=== PATIENT | male | born 1935 | race Caucasian/White ===

== ENCOUNTER 2016-08-09 13:59 | Inpatient (IN) | payer OTHER ==
[~2016-08-09] VITALS: Ht 157.5 cm; Wt 78.6 kg
[~2016-08-09 13:59] MED LIST: BG MC; COU1 PO; FLO4 PO; GLU5 PO; IPRATROPIUM BROM3 M2 HHN; METOPROLOL TART25 M1 PO; PHOS PO; SYN25 PO
--- NOTE | 2016-08-09 14:10 | NUR ---
PT TO ED LOBBY WITH FAMILY VIA WHEELCHAIR PENDING BED AVAILABILITY. HE IS A&O 4, BREATHING EVEN AND UNLABORED, WITH NO VISUAL SIGNS OF ACUTE OR RESP DISTRESS NOTED.
--- NOTE | 2016-08-09 16:07 | NUR ---
PT WHEELED TO BED 9 C/O LEFT HIP PAIN S/P FALL TODAY. PT'S STS PT MISSED DIALYSIS TODAY. PLACED PT ON CM, VSS. PT A/O X4, PT'S RESP E/U, PT ABLE TO SPEAK FULL SENTENCES.AWAITING DR SHEPPARD.
--- NOTE | 2016-08-09 17:02 | NUR ---
ED PHYSICIAN AT BEDSIDE FOR PATIENT EVALUATION. MEDICAL SCREENING EXAMINATION COMPLETED BY ED PHYSICIAN.
[2016-08-09 17:17] LABS: BASOPHIL % 0.5 % (0-2); PLATELET COUNT 176 x10^3mcL (130-400)
[2016-08-09 17:18] LABS: RED CELL DISTRIBUTION WIDTH 16.6 % (11.5-14.5)
[2016-08-09 17:27] LABS: ALKALINE PHOSPHATASE 72 U/L (46-116); ALT/SGPT 12 U/L (16-63); AST/SGOT 15 U/L (15-37); BILIRUBIN TOTAL 0.88 mg/dL (0.20-1.00); CALCIUM 8.9 mg/dL (8.5-10.1); CARBON DIOXIDE 30.2 mmol/L (21-32); CHLORIDE SERUM 97 mmol/L (98-107); CHOLESTEROL 143 mg/dL (<200); GLUCOSE SERUM 99 mg/dL (74-106); HDL CHOLESTEROL 44 mg/dL (40-60); SODIUM SERUM 135 mmol/L (136-145); TOTAL PROTEIN, SERUM 7.1 g/dL (6.4-8.2); URIC ACID 6.6 mg/dL (3.5-7.2)
[2016-08-09 17:34] LABS: ALBUMIN 2.7 g/dL (3.4-5.0)
[2016-08-09 17:36] LABS: CREATININE SERUM 9.7 mg/dL (0.7-1.3); POTASSIUM SERUM 5.8 mmol/L (3.5-5.1)
--- NOTE | 2016-08-09 18:06 | NUR ---
ALL TEST RESULTS COMPLETE, PATIENT READY FOR MD RE-EVALUATION.
--- NOTE | 2016-08-09 18:19 | NUR ---
MRSA SPECIMEN TAKEN AND SENT TO THE LAB
--- NOTE | 2016-08-09 18:38 | NUR ---
AWAITING FOR BED AVAILABILITY
--- NOTE | 2016-08-09 18:56 | NUR ---
AWAITING FOR BED AVAILABILITY
--- NOTE | 2016-08-09 19:10 | NUR ---
RECEIVED PT FROM ED VIA [facility], CAME IN DUE TO DIZZINESS, SYNCOPE AND S/P FALL. AAOX4. [place]. ABLE TO FOLLOW COMMANDS. NO SOB NOTED, LUNG SOUNDS DIMINISHED, W/ NON-PRODUCTIVE COUGH. DENIES CHEST PAIN/PRESSURE, 100% PACED. W/LEFT UPPER CHEST PACEMAKER. W/ BLE EDEMA. W/ LEFT ARM AV SHUNT, BRUIT AND THRILL PRESENT. ABDOMEN IS DISTENDED AND SOFT. C/O LEFT HIP PAIN ONLY ON MOVEMENT. SIDE RAILS UPX2. CALL LIGHT ON REACH. ON AIR MATTRESS.
--- NOTE | 2016-08-09 19:35 | NUR ---
ENDORSED TO INCOMING NURSE EASTON FOR CONTINUITY OF CARE
[2016-08-09 19:41] VITALS: BP 139/88
[2016-08-09 19:45] VITALS: Ht 157.5 cm; Wt 78.6 kg
--- NOTE | 2016-08-09 20:16 | NUR ---
PT A/A/O X4, DAUGHTER AT AT BEDSIDE. PT DENIES PAIN THUS FAR. ON AIR MATTRESS. IV INTACT ON THE RAC INFUSING WITH NS AT 10 ML/HR. MADE PT COMFORTABLE. PLACED CALL LIGHT WITH IN REACH. WILL CONTINUE TO MONITOR.
[2016-08-09 20:51] LABS: T3 TOTAL 0.64 ng/mL
[2016-08-09 20:52] LABS: CHOLESTEROL/HDL RATIO 3.4; MAGNESIUM 2.4 mg/dL (1.8-2.4)
[2016-08-09 21:04] LABS: FREE T4 1.38 ng/dL (0.76-1.46); FREE THYROXINE INDEX 2.4 ug/dL (1.4-4.5); T4(THYROXINE) 6.8 ug/dL (4.7-13.3)
[2016-08-09 22:13] VITALS: BP 115/64
--- NOTE | 2016-08-09 22:25 | NUR ---
PT C/O HEADACHE. GAVE PT TYLENOL PO. PT TOLERATED IT WELL. WILL CONTINUE TO MONITOR.
--- NOTE | 2016-08-09 22:36 | NUR ---
PT REFUSED KAYEXALTE, COLACE AND METOPROLOL PO. DR. GALLEGOS NOTIFIED. NO NEW ORDER GIVEN. WILL CONTINUE TO MONITOR.
[2016-08-09 22:53] VITALS: BP 115/64
--- NOTE | 2016-08-10 02:03 | NUR ---
PT C/O OF LEFT HIP PAIN. GAVE PT NORCO PO. PT TOLERATED IT WELL. WILL CONTINUE TO MONITOR.
--- NOTE | 2016-08-10 05:36 | NUR ---
PT RESTING WITH EYES CLOSED. AROUSABLE WITH VERBAL STIMULI. NO C/O PAIN THUS FAR. IV INTACT AND INFUSING ORDERED. MADE PT COMFORTABLE. WILL ENDORSE TO THE AM NURSE ACCORDINGLY.
--- NOTE | 2016-08-10 05:48 | NUR ---
SPOKE WITH DIALYSIS NURSE DOMINGUEZ TO CONFIRM SCHEDULED DIALYSIS FOR TODAY. WILL ENDORSE TO THE AM NURSE ACCORDINGLY.
[2016-08-10 06:10] LABS: BASOPHIL % 0.5 % (0-2); PLATELET COUNT 147 x10^3mcL (130-400)
[2016-08-10 06:11] VITALS: BP 96/53
[2016-08-10 06:22] LABS: CALCIUM 8.6 mg/dL (8.5-10.1); CARBON DIOXIDE 26.1 mmol/L (21-32); CHLORIDE SERUM 97 mmol/L (98-107); GLUCOSE SERUM 83 mg/dL (74-106); MAGNESIUM 2.3 mg/dL (1.8-2.4); PHOSPHOROUS 6.9 mg/dL (2.5-4.9); SODIUM SERUM 133 mmol/L (136-145)
[2016-08-10 06:24] LABS: CREATININE SERUM 9.8 mg/dL (0.7-1.3); POTASSIUM SERUM 6.1 mmol/L (3.5-5.1)
--- NOTE | 2016-08-10 06:34 | NUR ---
LAB CALLED WITH RESULTS OF K 6.1, AND CREAT 9.8. PAGE GATE RESULTS TO DR. GALLEGOS. WILL ENDORSE TO THE AM NURSE ACCORDINGLY.
[2016-08-10 06:43] LABS: RED CELL DISTRIBUTION WIDTH 16.8 % (11.5-14.5)
--- NOTE | 2016-08-10 07:53 | NUR ---
AT 0720 - RECEIVED PATIENT FROM NIGHT NURSE. AWAKE, ALERT AND ORIENTED X 4. MONITOR SHOWING 100 % PACED RHYHTM; RATE 69. IV AT TKO RATE OF 10ML/HR. ECHOCARDIOGRAM IN PROGRESS. FOR HD TODAY. AT 0745 - CALLED PATIENT'S PER PATIENT REQUEST, TO BRING HEARING AID BATTERIES FOR PATIENT.
--- NOTE | 2016-08-10 08:53 | NUR ---
SEEN BY DR HOWARD DURING MORNING ROUNDS. MEDICALT EA DOCTORS, AMMY MADISON AND MYSELF PRIMARY NURSE ALSO PRESENT. DR HOWARD SPOKE WITH PATIENT ABOUT PLAN OF CARE. TO STAY IN HOSPITAL TODAY.
[2016-08-10 10:11] VITALS: BP 110/61
[2016-08-10 14:00] VITALS: BP 107/63
--- NOTE | 2016-08-10 15:50 | NUR ---
P.T. NOTES RECEIVED P.T. EVAL ORDER; HOLD P.T. EVAL TODAY DUE TO DIALYSIS; OHT IN PLACE; CALL [facility], PHONE, TABLE IN REACH; FOLLOW UP TOMORROW. PVE
--- NOTE | 2016-08-10 16:53 | NUR ---
AT 1100 - SEEN BY DR MITCHELL. PATIENT NEEDS TO HAVE HD TODAY. [facility] CALLED AND THEY WILL BE COMING IN AT NOON. AT 1230 - DIALYSIS NURSE AT BEDSIDE, COMMENCING HD. AT 1430 - HD IN PROGRESS. BP LOW BUT STABLE. AT 1600 - SPOKE WITH DAUGHTER AND ABOUT CURRENT PLAN OF CARE. AT 1615 - HD COMPLETED. TOTAL OF 1000 ML REMOVED. BP 110/64. PATIENT MADE COMFORTABLE.
[2016-08-10 17:51] VITALS: BP 108/54
--- NOTE | 2016-08-10 19:11 | NUR ---
PATIENT HAS EATEN DINNER. BETTER APPETITE AFTER DIALYSIS. VSS. DENIES ANY PAIN. RECEIVED CALL FROM DR FLORES. DR UPDATED ON PATIENT CONDITION. NO NEW ORDERS. WILL ENDORSE CARE TO NIGHT NURSE.
--- NOTE | 2016-08-10 20:00 | NUR ---
PT A/A/O X4. DENIES DIZZINESS AND HEADACHE. RHONCHI NOTED SUDHA LUNGS. BREATHING EVEN AND UNLABORED ON 2L NC. DENIES CHEST PAIN AND PRESSURE. BOWEL SOUNDS ACTIVE. NO C/O N/V AND ABD PAIN. AV SHUNT NOTED ON THE FARNAZ WITH POSITIVE BRUIT AND THRILL. PITTING EDEMA NOTED ON BLE. IV INTACT ON THE RAC INFUSING WITH NS AT 10 ML/HR. MADE PT COMFORTABLE. PLACED CALL LIGHT WITH IN REACH. WILL CONTINUE TO MONITOR.
[2016-08-10 21:33] VITALS: BP 89/55
--- NOTE | 2016-08-10 22:34 | NUR ---
PT C/O HIP PAIN. GAVE PT NORCO PO. PT TOLERATED IT WELL. WILL CONTINUE TO MONITOR.
--- NOTE | 2016-08-11 00:13 | NUR ---
PT RESTING WITH EYES CLOSED. NO DISTRESS AND DISCOMFORT NOTED. WILL CONTINUE TO MONITOR.
--- NOTE | 2016-08-11 05:50 | NUR ---
PT QUIET AND RESTING. C/O HEADACHE. GAVE PT TYLENOL PO. PT TOLERATED IT WELL. IV INTACT AND INFUSING ORDERED. WILL ENDORSE TO THE AM NURSE ACCORDINGLY.
[2016-08-11 06:07] VITALS: BP 87/53
[2016-08-11 06:33] LABS: BASOPHIL % 0.6 % (0-2); PLATELET COUNT 138 x10^3mcL (130-400)
[2016-08-11 06:52] LABS: CALCIUM 9.1 mg/dL (8.5-10.1); CARBON DIOXIDE 29.5 mmol/L (21-32); CHLORIDE SERUM 95 mmol/L (98-107); GLUCOSE SERUM 99 mg/dL (74-106); MAGNESIUM 2.1 mg/dL (1.8-2.4); PHOSPHOROUS 7.4 mg/dL (2.5-4.9); POTASSIUM SERUM 5.3 mmol/L (3.5-5.1); SODIUM SERUM 135 mmol/L (136-145)
[2016-08-11 07:26] LABS: CREATININE SERUM 7.2 mg/dL (0.7-1.3)
--- NOTE | 2016-08-11 07:41 | NUR ---
AT 0730 - RECEIVED PATIENT FROM NIGHT NURSE. PATIENT AWAKE, ALERT AND ORIENTED. MONITOR SHOWING 100% PACED RHYTHM; RATE 80'S. IV AT TKO RATE OF 10ML/HR NS. NO C/O PAIN AT THIS TIME. ULTRASOUND AT BEDSIDE.
--- NOTE | 2016-08-11 10:29 | NUR ---
AT 0900 - SEEN BY DR HOWARD DURING MORNING ROUNDS. MEDICAL TEAM DOCTORS, AMMY MADISON AND MYSELF PRIMARY NURSE ALSO PRESENT. DR DELONG SPOKE WITH PATIENT IN INDONESIAN. PLAN TO DC PATIENT HOME TODAY. RECEIVED CALL FROM LAB WITH MRSA POSITIVE NARES. AT 0930 - PHYSICAL THERAPY AT BEDSIDE. PATIENT WAS OUT OF BED WITH WALKER. REPORTS THAT HE ONLY HAS "A LITTLE PAIN". BP LOW 85/42 PATIENT PLACED ON CONTACT ISOLATION. AT 0935 - DR DELGADO PER PHONE. NOTIFIED OF LOW BP AND WELL METOPROLOL AND LASIX BEING HELD AT THIS TIME. DR VASQUEZ NOTIFIED OF MRSA POSITIVE FOR NARES. RECEIVED ORDERS FOR MIDODRIN AND MRSA NARES TREATMENT.
[2016-08-11 10:31] VITALS: BP 85/42
[2016-08-11 14:05] VITALS: BP 100/51
--- NOTE | 2016-08-11 14:16 | NUR ---
AT 1100 - SEEN BY DR SOMMERS (NEPHROLOGY). NEW ORDERS RECEIVED. PAITENT TO GET ALBUMIN ORDERED. CONTINUE WITH MIDODRINE. ALSO RECEIVED ORDER FOR KAYEXALATE FOR K+ OF 5.3. AT 1245 - PATIENT'S VISITING. UPDATED ON CURRENT PLAN OF CARE. SHE REQUESTED TO ALSO SPEAK WITH THE DOCTOR. CALL PLACED FOR DR DELGADO. PATIENT AND MADE AWARE OF MRSA NARES POSITIVE STATUS. MRSA ACKNOWLEDGEMENT FORM SIGNED. AT 1330 - DR DELGADO AT BEDSIDE SPEAKING WITH PATIENT AND . 100 ML ALBUMIN 25% IN PROGRESS.
[2016-08-11 15:15] VITALS: BP 111/66
--- NOTE | 2016-08-11 18:25 | NUR ---
AT 1515 - BP 111/66 AFTER COMPLETION OF ALBUMIN INFUSION. FAMILY AT BEDSIDE. AT 1630 - BLOOD GLUCOSE LEVEL 178. PATIENT REFUSED INSULIN COVERAGE. ALSO REFUSED SCHEDULED DOSE OF GLUCOTROL. PATIENT'S DAUGHTER AND INQUIRED ABOUT ALL MEDS THAT PATIENT IS CURRENTLY TAKING. PATIENT SAYS THAT HE TAKES NO MEDS AT HOME. REQUESTED DR DELGADO TO SPEAK WITH FAMILY REGARDING THIS. AT 1730 - DR DELGADO HAS SPOKEN WITH PATIENT AND FAMILY AT LENGTH. AT 1800 - PATIENT REMAINS AWAKE AND ORIENTED X 4. BP WNL AFTER RECEIVING ALBUMIN AND MIDODRINE. PATIENT HAS BETTER APPETITE TODAY. IV REMAINS AT 10ML/HR. HAS NOT VOIDED THIS SHIFT. CONTACT ISOLATION MAINTAINED. REPORTS RESOLUTION OF HEADACHE. WILL ENDORSE CARE TO NIGHT NURSE.
--- NOTE | 2016-08-11 19:59 | NUR ---
PT IS AAOX4. LUNG SOUNDS HAVE WHEEZING BILATERALLY. PT IS ON 2.5 L NC. NO ACUTE DISTRESS NOTED. BOWEL SOUNDS ARE ACTIVE. DENIES ANY PAIN AT THIS TIME. PT IS ON TELE 1 AND HAS A PACE MAKER ON THE UPPER LEFT SIDE OF HIS CHEST. PACING AT 100%, HR IN THE 70'S RIGHT NOW. PT HAS AN IV IN THE RAC INFUSING 10 ML/HR NS. CALL LIGHT WITHIN REACH. WILL CONTINUE TO MONITOR.
[2016-08-11 20:52] VITALS: BP 86/50
--- NOTE | 2016-08-11 20:53 | NUR ---
BP 86/50 (62) HR 62. PAGE GATED DR. GALLEGOS.
--- NOTE | 2016-08-11 21:19 | NUR ---
HOLDING LASIX PER DR. GALLEGOS'S ORDER DUE TO BP OF 86/50.
--- NOTE | 2016-08-11 21:25 | NUR ---
PT STATES HE FEELS LIKE HE HAS POOP UNDERNEATH HIM. REGINALDO AND I CHECKED. THERE WAS NO BM. PT'S LAST BM WAS 08-09-16. WILL CONTINUE TO MONITOR.
[2016-08-11 22:49] VITALS: BP 86/50
--- NOTE | 2016-08-11 23:36 | NUR ---
PT IS CURRENTLY SLEEPING. NO SIGNS OF DISTRES NOTED. WILL CONTINUE TO MONITOR.
--- NOTE | 2016-08-12 03:49 | NUR ---
PT IS CURRENTLY SLEEPING. NO ACUTE DISTRESS NOTED. CALL LIGHT WITHIN REACH. WILL CONTINUE TO MONITOR.
--- NOTE | 2016-08-12 06:34 | NUR ---
PT IS RESTING IN BED COMFORTABLY. REGINALDO AND I CHANGED THE SHEETS, AND REPOSITIONED THE PT. ALL NEEDS HAVE BEEN MET AND THE CALL LIGHT IS WITHIN REACH. WILL ENDORSE TO MORNING SHIFT.
[2016-08-12 07:05] VITALS: BP 96/52
--- NOTE | 2016-08-12 08:10 | NUR ---
RECEIVED AWAKE, ALERT AND ORIENTED. NO ACUTE DISTRESS NOTED. NO C/O PAIN OR DISCOMFORT AT THIS TIME. PT REPORTED NO BM AFTER KAYAXALATE. NO C/O N/V NOR ABD. DISCOMFORT. IVF INFUSING TO KVO AND SITE CLEAR. CALL LIGHT WITHIN REACH. WILL CONTINUE WITH PLAN OF CARE.
[2016-08-12 10:01] VITALS: BP 100/51
--- NOTE | 2016-08-12 11:37 | NUR ---
PT UP WITH P.T. SITTING ON A CHAIR AT THIS TIME. NO ACUTE RESP. DISTRESS NOTED.
[2016-08-12] MEDS ORDERED: LEV500PM IV ×3 (12:04→22:04)
[2016-08-12] MEDS ORDERED: LAC PO (12:07)
[2016-08-12] MEDS ORDERED: CLE6PM IV ×3 (12:07→22:07)
[2016-08-12 12:19] LABS: BASOPHIL % 0.2 % (0-2); PLATELET COUNT 139 x10^3mcL (130-400)
[2016-08-12 12:27] LABS: CALCIUM 9.2 mg/dL (8.5-10.1); CARBON DIOXIDE 32.4 mmol/L (21-32); CHLORIDE SERUM 93 mmol/L (98-107); GLUCOSE SERUM 107 mg/dL (74-106); PHOSPHOROUS 8.5 mg/dL (2.5-4.9); SODIUM SERUM 136 mmol/L (136-145)
[2016-08-12 12:34] LABS: RED CELL DISTRIBUTION WIDTH 16.7 % (11.5-14.5)
[2016-08-12 12:35] LABS: CREATININE SERUM 8.4 mg/dL (0.7-1.3); POTASSIUM SERUM 5.7 mmol/L (3.5-5.1)
--- NOTE | 2016-08-12 13:30 | NUR ---
DR. DELGADO MADE AWARE OF ELEVETED BUN/CREAT AND K+. PT FOR DIALYSIS. SITTING ON A CHAIR AT THIS TIME. FAMILY AT BEDSIDE.
[2016-08-12 13:48] VITALS: BP 117/48
[2016-08-12 14:34] VITALS: BP 117/48
--- NOTE | 2016-08-12 14:57 | NUR ---
RIGHT SIDED THORACENTESIS DONE. 825ML YELLOW OSCAR COLORED FLUID OUT. HD NURSE AT BEDSIDE, PT TO START DIALYSIS.
--- NOTE | 2016-08-12 15:08 | NUR ---
THORACENTESIS COMPLETED 825ML REMOVED. PT TOLERATED WELL. HEMODIALYSIS IN PROGRESS AT THIS TIME. NO ACUTE DISTRESS. VS WNL.
--- NOTE | 2016-08-12 17:58 | NUR ---
RECEIVED REPORT FROM DIALYSIS NURSE, HAD 2L OUT. LAST BP=95/43. PRIMARY NURSE SUSANNAH MADE AWARE
[2016-08-12 18:17] VITALS: BP 97/48
[2016-08-12 18:33] LABS: APPEARANCE FLUID HAZY; COLOR FLUID YELLOW; RBC FLUID 1963 /cumm; SOURCE FLUID THORACENTESIS; WBC FLUID 188 /cumm
[2016-08-12 18:34] LABS: LYMPHOCYTE FLUID 87 %; MONOCYTE FLUID 7 %
--- NOTE | 2016-08-12 19:14 | NUR ---
PT RESTING AT THIS TIME, NO ACUTE RESP. DISTRESS NOTED. NO CHANGES IN VS. NO C/O PAIN OR DISCOMFORT AT THIS TIME. IVF INFUSING TO KVO AND SITE CLEAR. CALL LIGHT WITHIN REACH. WILL BE ENDORSED TO INCOMING SHIFT.
--- NOTE | 2016-08-12 19:39 | NUR ---
PT CURRENTLY RESTING IN BED, NO ACUTE DISTRESS. A/O X4. TELE #1 SHOWING PACED RHYTHM, DENIES CHEST PAIN. PULSES PALPABLE IN ALL EXTREMITIES, NO EDEMA NOTED. LUNG SOUNDS DIMINISHED BILATERALLY, NO RESPIRATORY DISTRESS NOTED. BOWEL SOUNDS ACTIVE, LAST BM 08/10/16. HD RECEIVED DURING DAY SHIFT, 2L OUT. GENERALIZED WEAKNESS NOTED. SKIN INTACT. DENIES PAIN AT THIS TIME. IV PATENT AND INTACT. BED IN LOWEST POSITION, SIDE RAILS UP X2, SCDS IN PLACE, CALL LIGHT WITHIN REACH. WILL CONTINUE TO MONITOR.
[2016-08-12 22:10] VITALS: BP 100/50
--- NOTE | 2016-08-13 01:17 | NUR ---
PT CURRENTLY RESTING IN BED, NO ACUTE DISTRESS. WILL CONTINUE TO MONITOR.
[2016-08-13 06:01] VITALS: BP 99/41
--- NOTE | 2016-08-13 06:17 | NUR ---
IV IN RAC D/C, NEW IV STARTED IN RFA. NEW IV PATENT AND INTACT. PT TOLERATED PROCEDURE WELL. WILL ENDORSE TO ONCOMING NURSE.
--- NOTE | 2016-08-13 06:20 | NUR ---
PT SLEPT PERIODICALLY THROUGHOUT NIGHT, NO ACUTE DISTRESS. ALL NEEDS MET AND ATTENDED TO. NO SIGNIFICANT CHANGES. IV PATENT AND INTACT. BED IN LOWEST POSITION, SIDE RAILS UP X2, SCDS IN PLACE, CALL LIGHT WITHIN REACH. WILL ENDORSE CARE TO ONCOMING NURSE.
[2016-08-13 07:43] LABS: CARBON DIOXIDE 32.7 mmol/L (21-32); CHLORIDE SERUM 94 mmol/L (98-107); GLUCOSE SERUM 94 mg/dL (74-106); MAGNESIUM 1.8 mg/dL (1.8-2.4); PHOSPHOROUS 6.9 mg/dL (2.5-4.9); POTASSIUM SERUM 4.1 mmol/L (3.5-5.1); SODIUM SERUM 136 mmol/L (136-145)
--- NOTE | 2016-08-13 07:44 | NUR ---
RECEIVED SLEEPING BUT AROUSABLE. NO ACUTE DISTRESS NOTED. VS WNL. NO C/O PAIN OR DISCOMFORT.CALL LIGHT WITHIN REACH. WILL CONTINUE W/PLAN OF CARE.
[2016-08-13 07:52] LABS: CREATININE SERUM 6.2 mg/dL (0.7-1.3)
[2016-08-13 07:58] LABS: BASOPHIL % 0.7 % (0-2); PLATELET COUNT 133 x10^3mcL (130-400); RED CELL DISTRIBUTION WIDTH 16.9 % (11.5-14.5)
--- NOTE | 2016-08-13 09:00 | NUR ---
AM ROUNDS DONE BY DR. HOWARD AND MEDICAL TEAM. PLAN TO CONT. WITH CURRENT TX. PT AGRRED WITH PLAN. CONCERNS ADDRESSED.
[2016-08-13 09:10] VITALS: BP 106/56
--- NOTE | 2016-08-13 13:00 | NUR ---
PT C/O CONSTIPATION X 3 DAYS, LACTULOSE GIVEN IN AM WITH NO RESULT. DR. DENNEY NOTIFIED AND ORDERED DULCOLAX SUPP. MEDS GIVEN. NO RESULTS YET. FAMILY AT BEDSIDE. NO DISTRESS NOTED.
[2016-08-13 13:18] VITALS: BP 106/56
[2016-08-13 13:20] VITALS: BP 97/79
[2016-08-13 17:31] VITALS: BP 113/52
--- NOTE | 2016-08-13 18:59 | NUR ---
PT REMAINS IN NO ACUTE DISTRESS. AWAKE AND ALERT. HAD SOFT LARGE BM X2 TODAY AFTER DULCOLAX. PERICARE DONE. NO C/O PAIN OR DISCOMFORT AT THIS TIME IVF TO KVO AND SITE CLEAR. CALL LIGHT WITHIN REACH. WILL BE ENDORSED TO INCOMING SHIFT.
--- NOTE | 2016-08-13 19:04 | NUR ---
PHYSICAL THERAPY DAILY NOTES CO-SIGN All documentation done by the Distribution Lead for 08/12/16 has been reviewed. I agree with the documentation. Reviewed/Co-Signed by: Zonia Owens DPT Documentation Done by: Osmany Ricci PTA Patient fairly cassia tx, slowly progressing towards goals. Patient cassia limite gait, transfers and up in chair x 60', assisted BTB. Cont with PT POC as cassia/safe.
--- NOTE | 2016-08-13 20:03 | NUR ---
RECEIVED PT FROM AM NURSE IN NO ACUTE DISTRESS, LAYING IN BED COMFORTABLY, A/OX4, TELE #1 100% PACED, DENIES ANY CHEST PAIN OR DISCOMFORT, PULSES PALPABLE AND EVEN, TRACE EDEMA TO BLE, LUNGS DIMINISHED TO BLL, ON 2L NC, DENIES SOB, BREATHING EVEN AND UNLABORED, ABD DISTENDED, BS HYPOACTIVE, RECEIVING DIALYSIS TONIGHT, AV SHUNT TO FARNAZ, BRUIT/THRILL PRESENT, GENERALIZED WEAKNESS, SKIN WARM DRY AND INTACT, DENIES ANY PAIN AT THIS TIME, IV INTACT AND PATENT, BED IN LOWEST POSITION , CALL LIGHT INSTRUCTIONS REINFORCED, WILL CONT TO MONITOR.
[2016-08-13 20:47] VITALS: BP 97/64
--- NOTE | 2016-08-13 21:33 | NUR ---
PT RECEIVING DIALYSIS AT THIS TIME, NO ACUTE DISTRESS, WILL CONT TO MONITOR.
--- NOTE | 2016-08-14 00:32 | NUR ---
DIALYSIS FINISHED AT THIS TIME, 2L OUT, NO ACUTE DISTRESS, WILL CONT TO MONITOR.
--- NOTE | 2016-08-14 05:14 | NUR ---
SLEPT PERIODICALLY, REMAINS IN STABLE CONDITION, ALL NEEDS MET AND ATTENDED TO, IV INTACT AND PATENT, CONTACT PRECAUTION ENFORCED, WILL CONT TO MONITOR AND ENDORSE ALL CARE TO ONCOMING NURSE.
[2016-08-14 05:41] VITALS: BP 103/51
[2016-08-14 07:02] LABS: BASOPHIL % 0.2 % (0-2)
[2016-08-14 07:15] LABS: CALCIUM 8.7 mg/dL (8.5-10.1); CARBON DIOXIDE 32.2 mmol/L (21-32); CHLORIDE SERUM 97 mmol/L (98-107); GLUCOSE SERUM 122 mg/dL (74-106); MAGNESIUM 1.7 mg/dL (1.8-2.4); PHOSPHOROUS 4.8 mg/dL (2.5-4.9); POTASSIUM SERUM 4.1 mmol/L (3.5-5.1); SODIUM SERUM 135 mmol/L (136-145)
--- NOTE | 2016-08-14 07:19 | NUR ---
RECEIVED REPORT FROM ARNULFO KILGORE.
--- NOTE | 2016-08-14 07:21 | NUR ---
PT IS SLEEPING COMFORTABLY IN BED, NO DISTRESS NOTED AT THIS TIME.
[2016-08-14 07:36] LABS: PLATELET COUNT 125 x10^3mcL (130-400); RED CELL DISTRIBUTION WIDTH 16.7 % (11.5-14.5)
[2016-08-14 07:59] LABS: CREATININE SERUM 4.8 mg/dL (0.7-1.3)
[2016-08-14 09:14] VITALS: BP 105/52
--- NOTE | 2016-08-14 11:42 | NUR ---
DR FORBES AWARE OF MG = 1.7. NO NEW ORDERS AT THIS TIME.
[2016-08-14 13:56] VITALS: BP 105/47
[2016-08-14 18:18] VITALS: BP 115/47
--- NOTE | 2016-08-14 19:27 | NUR ---
REMAINS IN NO DISTRESS, AWAKE AND ALERT. NO CHANGES IN VS. NO C/O PAIN OR DISCOMFORT. CALL LIGHT WITHIN REACH. WILL BE ENDORSED TO INCOMING SHIFT.
--- NOTE | 2016-08-14 19:28 | NUR ---
NURSING CO-SIGN THE DOCUMENTATION ENTERED BY THE IP HAS BEEN REVIEWED. REVIEWED/CO-SIGNED BY: Theresa Wilkins DOCUMENTATION DONE BY:BHUPENDRA DELANEY
--- NOTE | 2016-08-14 19:39 | NUR ---
PT CURRENTLY RESTING IN BED, NO ACUTE DISTRESS. A/O X4. TELE #1 SHOWING 100% PACED, DENIES CHEST PAIN. PULSES PALPABLE IN ALL EXTREMITIES, TRACE EDEMA NOTED TO BLE. LUNG SOUNDS DIMINISHED BILATERALLY, NO RESPIRATORY DISTRESS NOTED. BOWEL SOUNDS ACTIVE, LAST BM 08/14/16. ANURIC. AV SHUNT TO FARNAZ, LAST HD 08/14/16, 2L OUT. GENERALIZED WEAKNESS NOTED. SKIN INTACT. DENIES PAIN AT THIS TIME. IV PATENT AND INTACT. BED IN LOWEST POSITION, SIDE RAILS UP X2, SCDS IN PLACE, CALL LIGHT WITHIN REACH. WILL CONTINUE TO MONITOR.
[2016-08-14 22:00] VITALS: BP 127/63
--- NOTE | 2016-08-15 01:08 | NUR ---
PT CURRENTLY RESTING IN BED, NO ACUTE DISTRESS. WILL CONTINUE TO MONITOR.
--- NOTE | 2016-08-15 05:56 | NUR ---
PT SLEPT PERIODICALLY THROUGHOUT NIGHT, NO ACUTE DISTRESS. ALL NEEDS MET AND ATTENDED TO. NO SIGNIFICANT CHANGES. MEDICATED PAIN PER EMAR. IV PATENT AND INTACT. BED IN LOWEST POSITION, SIDE RAILS UP X2, SCDS IN PLACE, CALL LIGHT WITHIN REACH. WILL ENDORSE CARE TO ONCOMING NURSE.
[2016-08-15 06:16] VITALS: BP 125/64
--- NOTE | 2016-08-15 07:25 | NUR ---
RECEIVED REPORT FORM NOC MAGUI ISRAEL AT THIS TIME. PATIENT IS RESTING IN BED, AWAKE, ALERT AND O X 4. TELE # [address], ON 3L VIA NC, NO DISTRESS NOTED, LUNG SOUNDS DIMINISHED TO BLL. PULSES MODERATE, +1 EDEMA NOTED TO BLE. BOWEL SOUNDS ACTVE. AV SHUNT IN PLACE TO FARNAZ, WITH BRUIT AND THRILL. IV TO RFA IN PLACE. SCDS IN PLACE TO BLE. CALL LIGHT WITH IN REACH. WILL CONTINUE TO MONITOR.
[2016-08-15 08:39] LABS: BASOPHIL % 0.4 % (0-2); PLATELET COUNT 136 x10^3mcL (130-400)
[2016-08-15 08:42] LABS: RED CELL DISTRIBUTION WIDTH 16.6 % (11.5-14.5)
[2016-08-15 10:00] VITALS: BP 116/55
[2016-08-15 10:23] LABS: CARBON DIOXIDE 32.8 mmol/L (21-32); CHLORIDE SERUM 95 mmol/L (98-107); GLUCOSE SERUM 105 mg/dL (74-106); POTASSIUM SERUM 4.5 mmol/L (3.5-5.1); SODIUM SERUM 133 mmol/L (136-145)
[2016-08-15 10:25] LABS: CREATININE SERUM 6.1 mg/dL (0.7-1.3); MAGNESIUM 1.8 mg/dL (1.8-2.4); PHOSPHOROUS 5.9 mg/dL (2.5-4.9)
--- NOTE | 2016-08-15 10:30 | NUR ---
DR. ELLIOTT IN TO SEE PATIENT AND DISCUSS PLAN OF CARE AND NEED FOR BACTROBAN TREATMANT. PATIENT STILL REFUSED.
--- NOTE | 2016-08-15 10:54 | NUR ---
REPORT GIVEN TO PREETHI SANCHES AT [facility] AT THIS TIME. QUESTIONS AND CONCERNS ADDRESSED.
--- NOTE | 2016-08-15 11:56 | NUR ---
AT THE BEDSIDE, SPOKE TO PATIENT AND PATIENT AGREED TO INTRANASAL BACTROBAN AT THIS TIME.
--- NOTE | 2016-08-15 12:37 | NUR ---
NOTIFIED DR. FORBES PATIENT HAS A NEW TREMOR TO HANDS THAT WAS NOT PRESENT DURING AM ASSESSMENT. DR. STAPLES IN TO SEE PATIENT, AT THIS TIME.
[2016-08-15 13:12] VITALS: BP 116/55
[2016-08-15] MEDS ORDERED: COL100 PO (13:21)
[2016-08-15] MEDS ORDERED: APAP/HYDROCODON1 T13 PO (13:21)
[2016-08-15] MEDS ORDERED: PROA PO (13:21)
[2016-08-15 14:29] VITALS: BP 106/46
--- NOTE | 2016-08-15 14:51 | NUR ---
DISCHARGE INSTRUCTIONS GIVEN TO PATIENT AND FAMILY. BOTH VERBALIZE UNDERSTANDING. QUESTIONS AND CONCERNS ADDRESSED. A COPY OF DISCHARGE INSTRUCTIONS AND EDUCATION GIVEN TO FAMILY AND ONE PLACED IN THE TRANSFER PACKET. IV TO RIGHT HAND IN PLACE. TELE # 1 REMOVED AND RETURNED TO [employer]. PATIENT TRANSPORTED BY [facility] AT THIS TIME.
--- NOTE | 2016-08-15 16:49 | NUR ---
PHYSICAL THERAPY DAILY NOTES CO-SIGN All documentation done by the Banker Mason for 08/15/16 has been reviewed. I agree with the documentation. Reviewed/Co-Signed by: Meño Mir PT Documentation Done by:EMILY TORRES MACHINE II CUTTER WILL BENEFIT W/ P.T. AFTER ACUTE STAY.
== END 2016-08-15 14:50 | DRG 535 ==
LOC: ED 13:59 → DU 18:00
PROVIDERS: Emergency Medicine; ADMIT Family Medicine
DX: S32.592A Other specified fracture of left pubis, initial encounter for closed fracture (principal); N18.6 End stage renal disease; J69.0 Pneumonitis due to inhalation of food and vomit; I50.43 Acute on chronic combined systolic (congestive) and diastolic (congestive) heart failure; I13.2 Hypertensive heart and chronic kidney disease with heart failure and with stage 5 chronic kidney disease, or end stage renal disease; D68.69 Other thrombophilia; E11.51 Type 2 diabetes mellitus with diabetic peripheral angiopathy without gangrene; E87.5 Hyperkalemia; E83.39 Other disorders of phosphorus metabolism; E02 Subclinical iodine-deficiency hypothyroidism; I35.1 Nonrheumatic aortic (valve) insufficiency; E66.9 Obesity, unspecified; N40.0 Benign prostatic hyperplasia without lower urinary tract symptoms; W18.39XA Other fall on same level, initial encounter; Y93.89 Activity, other specified; Y92.018 Other place in single-family (private) house as the place of occurrence of the external cause; Z99.2 Dependence on renal dialysis; Z68.31 Body mass index [BMI] 31.0-31.9, adult; Z87.891 Personal history of nicotine dependence; Z91.15 Patient's noncompliance with renal dialysis
CPT/HCPCS: 32555; 82962; 83880; 84439; 88344; 94150; 97110-GP; 97116-GP; 97530-GP; A4719; C1729; J1940; J1956; J3490; J7030; J7620; P9047; Q0092